=== PATIENT | female | born 1985 | race Two or more races ===

== ENCOUNTER 2022-02-05 14:59 | Emergency (ER) | payer OTHER, SELFPAY ==
--- NOTE | ~2022-02-05 | CT_ITS ---
EXAMINATION: CT ABDOMEN AND PELVIS WITHOUT CONTRAST CLINICAL INFORMATION: r/o seroma to umbilicus / abbess, ABD PAIN COMPARISON: None TECHNIQUE: Multidetector volumetric imaging was performed from the superior aspect of the liver through the pubic symphysis. Sagittal and coronal reformatted images were obtained on the technologist's workstation. This CT examination was performed using dose optimization techniques as appropriate, variously including the following: *Automated exposure control *Adjustment of mA and/or kV according to patient size (this includes techniques or standardized protocols for targeted exams where dose is matched to indication/reason for exam; i.e. extremities or head) *Use of iterative reconstruction technique DLP: 864 mGy-cm FINDINGS: LUNG BASES: Bilateral breast prostheses are present. The lung bases appear normal without infiltrates or effusions. LIVER, GALLBLADDER, AND BILIARY TREE: The liver is normal in size, shape, and attenuation. No focal hepatic lesion or biliary ductal dilatation is present. The gallbladder is contracted but otherwise unremarkable with no evidence of radiopaque gallstones, gallbladder wall thickening, or obvious pericholecystic inflammatory changes. PANCREAS: Unremarkable. SPLEEN: Unremarkable. ADRENAL GLANDS: Unremarkable. KIDNEYS AND URETERS: The kidneys are normal in size, shape, and attenuation. No hydronephrosis, hydroureter, or calculi seen. No perinephric stranding. BLADDER: Unremarkable. GASTROINTESTINAL TRACT: The small and large bowel are unremarkable. The appendix is unremarkable. ABDOMINAL WALL: No significant hernia is appreciated. Streaky changes are present in the abdominal wall. The this patient undergo liposuction? There are multiple injection granuloma right buttocks. There is fatty atrophy of the gluteal muscles which is symmetric bilaterally. No abdominal wall seroma is or abscess is seen. LYMPH NODES: No retroperitoneal lymphadenopathy. VASCULAR: Unremarkable. PELVIC VISCERA: Uterus is not present. A cyst is present in the right adnexa measuring 3.8 x 2.4 x 2.8 cm. Left ovary also contains a small cyst measuring about 2.3 cm in size. No ascites. OSSEOUS STRUCTURES: Unremarkable. CT/CT abdomen pelvis wo IV con IMPRESSION: No significant abnormality. No seroma or abscess. Incidental note made of bilateral ovarian cysts. Fleischner guidelines were followed.
[2022-02-05 15:47] VITALS: BP 122/80; PULSE 84; RESP 16; TEMP 36.4; O2SAT 100; BMI 31.3
[2022-02-05 16:14] LABS: MANUAL DIFF FLAG NO
[2022-02-05 16:19] LABS: Basophils Percent Auto 0.4 % (0-2); Eosinophils Absolute Auto 0.2 X10*3/uL (0.0-0.4); Eosinophils Percent Auto 2.3 % (0-4); Hematocrit 42.6 % (37.0-47.0); Hemoglobin 13.9 g/dl (12.0-16.0); Imm Gran Abs Auto 0.01 X10*3/uL (0.00-0.03); Imm Gran Pct Auto 0.1 % (0.0-0.4); Lymphocytes Absolute Auto 2.2 X10*3/uL (1.2-4.9); Lymphocytes Percent Auto 29.2 % (20-40); Mean Corpuscular HGB Conc 32.6 g/dl (31.0-35.0); Mean Corpuscular Hemoglobin 29.3 pg (27.0-33.0); Mean Corpuscular Volume 89.9 fL (80.0-98.0); Mean Platelet Volume 11.5 fL (9.4-12.3); Monocytes Absolute Auto 0.5 X10*3/uL (0.1-1.2); Monocytes Percent Auto 6.7 % (2-11); Neutrophils Absolute Auto 4.6 x10*3/uL (2.0-8.3); Neutrophils Percent Auto 61.3 % (45-73); Platelet Count 284 X10*3/uL (160-400); Red Blood Count 4.74 X10*6/uL (4.20-5.50); Red Cell Distribution Width 12.6 % (11.0-16.0); White Blood Count 7.4 X10*3/uL (4.8-10.8)
--- NOTE | 2022-02-05 16:23 | ED_ITS ---
HPI - General Adult General Chief complaint: Wound/Laceration Stated complaint: abd pain Time Seen by Provider: 02/05/22 16:02 Source: patient Mode of arrival: ambulatory Limitations: no limitations History of Present Illness HPI narrative: 36 year old female s/p tummy tuck and lipo 5 years ago presents to the emergency department with slight drainage from umbilical incision site from tummy tuck of 5 years ago. Patient tells me that she noticed that her belly button is getting slightly red and there is foul smelling, sticky drainage coming from her belly button that is yellow/green. She also notes associated bloating, denies abdominal pain. Patient reports that this started 4 days ago. She tells me that she has also had lower back pain and some burning with urination whch has been going on for the past 3 days, no radiation of the pain, no flank pain. She tells me that her initial surgery was 5 years ago in the [facility] and that 3 years ago she required another procedure in [place] because the incision had opened, she was having similar symptoms to now at that time. Denies fevers, chills, chest pain, shortness of breath, nausea, vomiting, abdominal pain headache, vision changes, dizziness. Related Data Previous Rx's Medication Instructions Recorded doxycycline hyclate 100 mg capsule 100 mg PO BID 10 days #20 caps 02/05/22 Allergies Allergy/AdvReac Type Severity Reaction Status Date / Time No Known Allergies Allergy Verified 02/05/22 15:46 Review of Systems Review of Systems: Constitutional : No Weight loss, No Fever, No Chills, No Fatigue, No Malaise ENT/Mouth : No sore throat, No Rhinorrhea Eyes: No Eye Pain, No Swelling, No Redness Cardiovascular : No Chest Pain, No SOB, No Dyspnea on Exertion, No Orthopnea, No Edema, No Palpitations Respiratory : No Cough, No Sputum, No Wheezing Gastrointestinal : No Nausea, No Vomiting, No Diarrhea, No Constipation, No abdominal Pain, No Hematochezia, No Melena Genitourinary : + Dysuria, No Urinary Frequency, No Hematuria, Musculoskeletal : + joint pain, No Myalgias, No Joint Swelling Skin : No Skin Lesions, No rash, + umbilical drainage Neuro : No Weakness, No Numbness, No Dizziness, No Headache Psych : No Anxiety/Panic, No Depression All other systems reviewed and are negative Yes all other systems are reviewed and are negative [facility] Past Medical History Attestation statement: The following information was validated with the patient. Source: old records reviewed and nursing notes reviewed Social History Social History Advance Directives: No Advance Directives Information Provided: No Physical Exam ED Vital Signs: Vital Signs - 24 hr 02/05/22 15:47 Temperature 97.5 F Pulse Rate 84 Respiratory Rate 16 Blood Pressure 122/80 Pulse Oximetry 100 Oxygen Delivery Method Room Air BMI result Body Mass Index 31.3 vss Appearance: Alert.? Oriented X3.? No acute distress.? Head: Normocephalic, atraumatic, no step-offs or deformities Eyes: Pupils equal, round and reactive to light.? Neck: Normal inspection.? Neck supple.? CVS: Normal heart rate and rhythm.? Pulses normal.? Respiratory: No respiratory distress.? Breath sounds normal.? Abdomen: Soft and nontender.? Umbilicus without erythema, warmth, fluctuance. No signs of evident abscess on exam. Unable to palpate any umbilical hernias. No pain with palpation of this area. Skin: Skin warm and dry.? Normal skin color.? Normal skin turgor.? Extremities: No lower extremity edema.? No calf ttp. 5/5 strength to bilateral upper and lower extremities Back: Slight discomfort with palpation over left flank cover no midline tenderness. No CVA tenderness bilaterally Neuro: Oriented X 3.? No motor deficit.? No sensory deficit. CN 2-12 intact . Patient ambulating with steady gait. No saddle paresthesias. DTRs intact to bilateral lower extremities. Course Reevaluation(s) Reevaluation #1: Upon further questioning patient tells me she thinks that years ago she had a seroma, however she is not certain she tells me that when [place] was living [place] different [place] they would put her on antibiotics each time her belly button had some drainage. To clarify, she tells me that is not been draining today however the past few days she has noted some scant drainage from the site. She denies abdominal pain however tells me she feels like her abdomen is bloated. Time: 17:43 Reevaluation #2: Patient's CT scan shows no seroma, no acute pathology. Incidental finding of bilateral ovarian cysts, patient denying pelvic pain, vaginal discharge or bleeding. Unlikely torsion or ectopic patient has - test. Patient updated, will be discharged on doxycycline for skin infection. I feel patient is stable for discharge home at this time, patient in agreement with plan. Time: 19:40 Medical Decision Making MDM Narrative Medical decision making narrative: 1627 30-year-old female presents with concerns of left flank pain, urinary frequency and dysuria, umbillical redness and drainage from an old incision site X4 days Physical examination benign Will rule out UTI, unlikely pyelo. Unlikely epidural abscess or cauda equina. Unlikely hernia or seroma however will rule out with CT scan. No evidence of cellulitis on exam. Plan- labs, urine , will rule out seroma with CT of the abdomen and pelvis although unlikely Medical Records Medical records reviewed: Yes I reviewed the patient's medical records. Lab Data Lab results reviewed: Yes I reviewed the patient's lab results. Result diagrams: 02/05/22 16:07 02/05/22 16:07 Labs: Lab Results 02/05/22 02/05/22 02/05/22 Range/Units 16:07 16:07 19:51 WBC 7.4 (4.8-10.8) X10*3/uL RBC 4.74 (4.20-5.50) X10*6/uL Hgb 13.9 (12.0-16.0) g/dl Hct 42.6 (37.0-47.0) % MCV 89.9 (80.0-98.0) fL MCH 29.3 (27.0-33.0) pg MCHC 32.6 (31.0-35.0) g/dl RDW 12.6 (11.0-16.0) % Plt Count 284 (160-400) X10*3/uL MPV 11.5 (9.4-12.3) fL Immature Gran % (Auto) 0.1 (0.0-0.4) % Neut % (Auto) 61.3 (45-73) % Lymph % (Auto) 29.2 (20-40) % [place] % (Auto) 6.7 (2-11) % Eos % (Auto) 2.3 (0-4) % Baso % (Auto) 0.4 (0-2) % Lymph # (Auto) 2.2 (1.2-4.9) X10*3/uL [place] # (Auto) 0.5 (0.1-1.2) X10*3/uL Eos # (Auto) 0.2 (0.0-0.4) X10*3/uL Baso # (Auto) 0.0 (0.0-0.2) X10*3/uL Abs Immat Gran (auto) 0.01 (0.00-0.03) X10*3/uL Absolute Neuts (auto) 4.6 (2.0-8.3) x10*3/uL Absolute Nucleated RBC 0.000 (0.0-0.012) X10*3/uL Nucleated RBC % (auto) 0.0 (0.0-0.2) /100WBC Sodium 137 (135-145) mmol/L Potassium 4.8 (3.3-5.1) mmol/L Chloride 105 (96-108) mmol/L Carbon Dioxide 19 L (22-29) mmol/L Anion Gap 18 (12-20) BUN 13 (9-16) mg/dL Creatinine 0.70 (0.5-1.4) mg/dL Estim Creat Clear Calc 128.4 Estimated GFR > 60 Random Glucose 75 (60-115) mg/dL Calcium 9.3 (8.4-10.2) mg/dL Total Bilirubin 0.3 (0.0-1.0) mg/dL Direct Bilirubin < 0.2 (0.0-0.5) mg/dL AST 21 (5-31) U/L ALT 14 (0-31) U/L Alkaline Phosphatase 69 (39-117) U/L Total Protein 7.9 (6.5-8.0) g/dL Albumin 4.4 (3.5-5.0) g/dL Lipase 30 (8-78) U/L Beta HCG, Quant < 2 mIU/mL Urine Color Yellow Urine Appearance Clear Urine pH 7.0 (5.0-9.0) Ur Specific [place] 1.015 (1.005-1.025) Urine Protein Negative (Neg-Trace) mg/dL Urine Glucose (UA) Negative (Negative) mg/dL Urine Ketones Negative (Negative) mg/dL Urine Blood Negative (Negative) Urine Nitrite Negative (Negative) Ur Leukocyte Esterase Negative (Negative) Discharge Plan Discharge Clinical Impression: Abdominal bloating Patient Disposition: Home, Self-Care Instructions: Gas and Bloating (ED), Abdominal Pain (ED) Additional Instructions: Take your medications as prescribed. If you were prescribed antibiotics today, it is important that you take your medication to their entirety, do not skip any doses, do not finish them early. Follow-up with your primary care provider this week. Return to the emergency department with new or worsening symptoms. Such as fevers, chills, chest pain, shortness of breath, nausea, vomiting, dizziness, headache, vision changes, lethargy In case of emergency call 911 Doxycycline is an antibiotic that has been sent to your pharmacy, please stay out of direct sunlight as this can cause skin irritation and rash. CT/CT abdomen pelvis wo IV con IMPRESSION: No significant abnormality. No seroma or abscess. Incidental note made of bilateral ovarian cysts. ? Fleischner guidelines were followed. Prescriptions: New doxycycline hyclate 100 mg capsule 100 mg PO BID 10 Days Qty: 20 0RF Referrals: Physician,Nonstaff [Primary Care Provider] - 2 days Stand Alone Forms: Work/School Release
[2022-02-05 16:30] LABS: Anion Gap 18 (12-20); Blood Urea Nitrogen 13 mg/dL (9-16); Calcium 9.3 mg/dL (8.4-10.2); Carbon Dioxide 19 mmol/L (22-29); Chloride 105 mmol/L (96-108); Creatinine Clr Calc Pharmacy 128.4; Estimated Glomerular Filt Rate > 60; Glucose Random 75 mg/dL (60-115); Potassium 4.8 mmol/L (3.3-5.1); Sodium 137 mmol/L (135-145)
[2022-02-05 18:11] LABS: HCG Quantitative < 2 mIU/mL
[2022-02-05 19:24] LABS: Alanine Aminotransferase 14 U/L (0-31); Albumin Level 4.4 g/dL (3.5-5.0); Alkaline Phosphatase 69 U/L (39-117); Aspartate Amino Transferase 21 U/L (5-31); Bilirubin Direct < 0.2 mg/dL (0.0-0.5); Bilirubin Total 0.3 mg/dL (0.0-1.0); Lipase 30 U/L (8-78); Total Protein 7.9 g/dL (6.5-8.0)
[2022-02-05 19:57] LABS: Appearance Urine Clear; Color Urine Yellow; Glucose Urine UA Negative (Negative); Leukocyte Esterase Urine Negative (Negative); Nitrite Urine Negative (Negative); Specific Gravity - Urine 1.015 (1.005-1.025); Urine Blood Negative (Negative); Urine Ketones Negative (Negative); Urine Protein Negative (Neg-Trace)
== END 2022-02-05 20:30 | disposition home or self-care (01) ==
PROVIDERS: Physician Assistant; Emergency Provider Emergency Medicine
DX: R14.0 Abdominal distension (gaseous) (principal); R35.0 Frequency of micturition; R30.0 Dysuria; Z79.899 Other long term (current) drug therapy
CPT/HCPCS: 36415; 74176; 80048; 80076; 81003; 83690; 84702; 85025; 99282; 99284

== ENCOUNTER 2023-04-07 11:46 | Emergency (ER) | payer OTHER, SELFPAY ==
[2023-04-07 12:11] VITALS: BP 107/55; PULSE 79; RESP 16; TEMP 36.3; O2SAT 99; BMI 30.8
--- NOTE | 2023-04-07 12:11 | ED_ITS ---
HPI - Skin/Abscess/Foreign Bdy General Chief complaint: Skin/Abscess/Foreign Body Stated complaint: Blister on leg Time Seen by Provider: 04/07/23 12:22 Source: patient and family Mode of arrival: ambulatory Limitations: no limitations History of Present Illness HPI narrative: 37-year-old female with no significant pmhx presents to the ED today with complaint of a itchy red blisters to her thighs x4 days. She noticed redness to the front of her or right thigh four days ago while at work. She works at [employer] and denies handling any chemicals or materials. Over the last few days this area has become itchy and has now developed a fluid-filled blister. She is now starting to get the same redness to the front of her left thigh and notices a small blister starting to form. Reports pain intensity rated 6/10. Has not taken any pain medication at home for this. Denies blisters, itching or redness anywhere else on the body. States she has never had symptoms like this before. Denies new detergent/ lotion/ soaps. Denies chance of . Denies concern for STIs. Denies recent travel. Denies insect or tick bites. Denies fever, chills, headache, dizziness, neck pain, chest pain, SOB, dysuria, hematuria, vaginal discharge. Related Data Previous Rx's Medication Instructions Recorded doxycycline hyclate 100 mg capsule 100 mg PO BID 10 days #20 caps 02/05/22 cephalexin 500 mg capsule 500 mg PO QID 7 days #28 caps 04/07/23 diphenhydramine HCl 50 mg capsule 50 mg PO Q8H PRN itching #14 caps 04/07/23 hydrocortisone 1 % topical 1 appl topical BID PRN itching 04/07/23 ointment (Anti-Itch #28.35 grams (hydrocortisone)) Allergies Allergy/AdvReac Type Severity Reaction Status Date / Time No Known Allergies Allergy Verified 04/07/23 12:11 Review of Systems 2 Review of Systems: Constitutional: No fever, chills, fatigue, night sweats, weight changes ENT/Mouth: No ear pain, hearing loss, nasal congestion, sinus pain, rhinorrhea, sore throat Eyes: No eye pain, swelling, redness, vision changes, discharge Cardio: No chest pain, palpitations, HUNTER, orthopnea, peripheral edema Pulm: No SOB, cough, sputum, wheezing, dyspnea, hemoptysis GI: No nausea, vomiting, hematemesis, abdominal pain, diarrhea, constipation, hematochezia, melena : No irregular bleeding, dysuria, frequency, urgency, hesitancy, hematuria, flank pain, urinary flow changes, urinary incontinence or retention MSK: No back pain, neck pain, joint pain, myalgias Skin: No lesions, rashes, +blisters to thighs Neuro: No weakness, numbness, paresthesias, LOC, dizziness, headache All other systems reviewed and are negative. [facility] Past Medical History Attestation statement: The following information was validated with the patient. Source: old records reviewed and nursing notes reviewed Social History Social History Advance Directives: No Advance Directives Information Provided: Yes Physical Exam 2 Vital Signs: Vital Signs: Last Vital Signs Temp 97.4 F 04/07/23 12:11 Pulse 89 04/07/23 14:06 Resp 19 04/07/23 14:06 BP 102/59 L 04/07/23 14:06 Pulse Ox 99 04/07/23 14:06 O2 Del Method Room Air 04/07/23 14:06 BMI result Body Mass Index 30.8 Vital signs stable Const: General: cooperative, comfortable, no acute distress, alert and awake Orientation/consciousness: patient oriented x3 Limitations: no limitations HEENT: Other: No mucocutaneous lesions noted to oral mucosa. Head: Yes normal to inspection Ears: hearing grossly normal bilaterally General nose exam: Normal external nose present Mouth: Normal oral and palatal mucosa present, lip normal, tongue normal, oropharynx normal and moist mucous membranes Throat: Yes posterior oropharynx normal, Yes tonsils normal and Yes uvula midline Eyes: General: appearance normal, both eyes and all related structures C onjunctivae: conjunctivae normal Sclerae: sclerae normal Pupils: Equal, round and reactive pupils present Neck: Neck: Yes normal visual inspection and Yes no lymphadenopathy Resp: Effort & Inspection: normal respiratory effort Auscultation: clear to auscultation bilaterally Cardio: Rate: regular rate Rhythm: regular rhythm Peripheral pulses: r adial pulses present and dorsalis pedis present GI: Inspection: Yes normal to inspection Skin: Other: Refer to photos below. 3cm fluid filled blister on an erythemat ous, pruritic base noted to the anterior aspect of the right thigh. There is an area of erythema with a small, less than 1cm fluid filled blister noted to anterior left thigh. No other rashes or lesions noted to skin. No involvement of mucous membranes or palms/soles. No sloughing. Neuro: General: patient oriented x3, gait normal and moves all extremities Cranial nerves: Yes CN's II-XII intact bilaterally and Yes Equal, round and reactive pupils present Extrem: General: Yes normal to inspection and Yes full ROM Course Course Course Narrative: RME: 37yo F w/ PMHx Tummy tuck & Liposuction presenting to the ED c/o pruritic blister to inner thigh bilaterally. Admits started off initially as erythema and blister formed this morning. Denies known new exposures including soaps/lotions/detergent, new sexual partners or concern for STI. Denies travel Fluid-filled blister noted to right inner thigh with surrounding erythema, small blister noted to left inner thigh Full HPI, ROS and PE to be performed by primary ED provider. Reevaluation(s) Reevaluation #1: Fluid filled blister drained > HSV serology sent. Urine without infection or . I have concern for an allergic contact dermatitis vs viral/ bacterial infection. Plan to discharge patient home with benadryl, prednisone and keflex with dermatology follow up. Presentation not consistent with SJS/TEN. Discussed strict return precautions. All questions answered at this time. Patient is agreeable with disposition and stable for discharge. Medications Administered Discontinued Medications Generic Name Dose Route Start Last Admin Trade Name Freq PRN Reason Stop Dose Admin Diphenhydramine HCl 50 mg 04/07/23 13:46 04/07/23 13:58 Diphenhydramine Hcl 25 Mg Capsule PO 04/07/23 13:47 50 mg ONCE ONE Administration Medical Decision Making Medical Decision Making MDM Narrative: 37-year-old female with no significant pmhx presents to the ED today with complaint of a itchy red blisters to her thighs x4 days. VSS, afebrile. Patient is nontoxic appearing, in NAD. There is a 3cm fluid filled blister on an erythematous, pruritic base noted to the anterior aspect of the right thigh. There is an area of erythema with a small, less than 1cm fluid filled blister noted to anterior left thigh. No other rashes or lesions noted to skin. No involvement of mucous membranes or palms/soles. No sloughing. Lungs CTA b/l. Posterior oropharynx without edema. Controlling secretions and speaking in complete sentences. No signs of respiratory distress. Clinical concern for viral vs bacterial infection, allergic reaction, contact dermatitis, bullous pemphigoid. Unlikely SJS/TEN. Herpes serology ordered in triage. I will order UA and urine test. Plan for re-evaluation. Differential Diagnosis Differential Diagnoses: The differential diagnosis associated with the presentation includes As above. Admission/Observation Not considered Lab Data MDM Lab Attestation statement: I reviewed the patient's lab results. As above Labs: Lab Results 04/07/23 Range/Units 13:19 Urine Color Yellow Urine Appearance Clear Urine pH 5.5 (5.0-9.0) Ur Specific [place] >= 1.030 H (1.005-1.025) Urine Protein Negative (Neg-Trace) mg/dL Urine Glucose (UA) Negative (Negative) mg/dL Urine Ketones Trace (Negative) mg/dL Urine Blood Negative (Negative) Urine Nitrite Negative (Negative) Ur Leukocyte Esterase Negative (Negative) Urine Test NEGATIVE (NEGATIVE) Independent Historian Clinical information obtained from an independent historian. History obtained from or confirmed by: Spouse External Record Review External record reviewed: Inpatient record Prescription Management I considered prescription management with: Pain Medication and Other (antihistamine, steroid) Critical Care Time Critical Care Time Critical Care Time: No Discharge Plan Discharge Clinical Impression: Blistering of skin Patient Disposition: Home, Self-Care Additional Instructions: Your urine did not show infection or today. You have been prescribed an antibiotic to take 4 times daily. Keflex has been sent to your pharmacy. Take this as prescribed. Do not miss any doses or stop taking this early. Benadryl has been sent to your pharmacy. You can take this every 8 hours to help with itching. This may cause you to be drowsy so do not drive while taking this. Hydrocortisone cream has been sent to your pharmacy. You can apply this to any areas of itching. Her blister was popped in the ED today. Keep this covered and intact to prevent infection. You have been provided a referral to a bellperson. You may call them to make an appointment. they will not call you. If symptoms persist or worsen please return to the emergency department. In the case of an emergency call 911. Prescriptions: New hydrocortisone [Anti-Itch (HC)] 1 % ointment 1 appl topical BID PRN (Reason: itching) Qty: 28.35 0RF diphenhydramine HCl 50 mg capsule 50 mg PO Q8H PRN (Reason: itching) Qty: 14 0RF cephalexin 500 mg capsule 500 mg PO QID 7 Days Qty: 28 0RF No Action doxycycline hyclate 100 mg capsule 100 mg PO BID 10 Days Qty: 20 0RF Referrals: Waqas Rod, INSTITUTIONAL AIDE-BC [Nurse Practitioner] - Stand Alone Forms: Work/School Release Interventions: ED Discharge Assessment Last Done: 04/07/23 14:15 Discharge Date/Time: 04/07/23 14:16
[2023-04-07 13:30] LABS: Appearance Urine Clear; Color Urine Yellow; Glucose Urine UA Negative (Negative); Leukocyte Esterase Urine Negative (Negative); Nitrite Urine Negative (Negative); PH 5.5 (5.0-9.0); Specific Gravity - Urine >= 1.030 (1.005-1.025); Urine Blood Negative (Negative); Urine Ketones Trace mg/dL (Negative); Urine Protein Negative (Neg-Trace)
[2023-04-07 13:33] LABS: UPreg QC Valid YES; Urine Pregnancy NEGATIVE (NEGATIVE)
[2023-04-07] MEDS: diphenhydrAMINE HCL 25 MG CAPSULE 50 MG PO (13:58)
--- NOTE | 2023-04-07 13:58 | PC.NURSE ---
PT MEDICATED PER mar.
[2023-04-07 14:06] VITALS: BP 102/59; PULSE 89; RESP 19; O2SAT 99
== END 2023-04-07 14:16 | disposition home or self-care (01) ==
PROVIDERS: Physician Assistant; Physician Assistant Medical; Emergency Provider Emergency Medicine Emergency Medical Services; PCP Internal Medicine
DX: S80.821A Blister (nonthermal), right lower leg, initial encounter (principal); R21 Rash and other nonspecific skin eruption; X58.XXXA Exposure to other specified factors, initial encounter; Y93.9 Activity, unspecified; Y92.9 Unspecified place or not applicable; Y99.9 Unspecified external cause status; Z79.899 Other long term (current) drug therapy
CPT/HCPCS: 36415; 81003; 81025; 87255; 99283

== ENCOUNTER 2023-06-03 13:53 | Outpatient (AMB) | payer OTHER, SELFPAY ==
[2023-06-03 14:01] VITALS: BMI 31.5
--- NOTE | 2023-06-03 14:01 | A.OFFVIS_ITS ---
Intake VS Expanded 06/03/23 14:01 06/16/23 10:12 Height 5 ft 6 in 5 ft 6 in Weight 195 lb 1.745 oz 195 lb BMI 31.5 31.5 Intake Visit Reasons: Obesity/ Unable to reach patient Allergies No Known Allergies Allergy (Verified 04/07/23 12:11) HPI Nutrition Presentation Details Pt presents for MNT for obesity. Pt was referred by Dr. Daphne Lyn from [facility] Patient reports having had tummy tuck 9 yrs go. Pt reports having gradually gained about 30 lbs in about 2 years ago food frequency: fruits: not including vegetable: not including Fish: 0-1 time per week Pt reports weight was 168 lbs 2 yrs ago daily intake 5 am coffee with 1 tbsp sugar poptar or toast or bagel with cream cheese or tuna with crackers , water 10: 30 lunch : rice/chicken, water snacks on chips 4-5 pm dinner: rice/chicken , juice 8 pm coffee fried : 3 x/wk walking > 1 hr daily , work is active eoth: occ (deisy occ) Smoking: denies YWK-Uviyiep-Oa.Jeor Equation Height 5 ft 6 in Weight 195 lb Resting Metabolic Rate 1583.41 Calculated Activity Level Mild Activity Calories Needed to Maintain Weight 2177.19 Diagnosis Nutrition problem #1 excessive energy intake As related to (etiology) #1 diagnosis As evidenced by (sign/symptom) #1 high BMI (31.5 on 05/2023 and reports of 30 lb wt gain in 2 yrs) Monitoring/Goals Nutrition problem monitoring total CHO intake, weight and oral fluids Nutrition goal/outcome wt loss 5lbs in 2 months Outcome progress verbalized understanding Learning/Education Readiness to learn good Stages of change preparation Educational materials provided Yes (meal planning, reducing empty moy foods ) Most Recent Diabetes Results: Creatinine 0.70 mg/dL (0.5-1.4) 02/05/22 Blood Urea Nitrogen 13 mg/dL (9-16) 02/05/22 Sodium 137 mmol/L (135-145) 02/05/22 Potassium 4.8 mmol/L (3.3-5.1) 02/05/22 Chloride 105 mmol/L (96-108) 02/05/22 Carbon Dioxide 19 mmol/L (22-29) L 02/05/22 Calcium 9.3 mg/dL (8.4-10.2) 02/05/22 AST 21 U/L (5-31) 02/05/22 ALT 14 U/L (0-31) 02/05/22 Total Protein 7.9 g/dL (6.5-8.0) 02/05/22 Albumin 4.4 g/dL (3.5-5.0) 02/05/22 Assessment & Plan Assessment & Plan (1) Obesity (BMI 30.0-34.9): Code(s): E66.9 - Obesity, unspecified Plan: Wt: 89 Kg ( 05/2023 ) Est kcal needs as per MSJ: 2200 (40% carb, 30% protein/fat) Est fluid needs as per 25-30 ml/d:2670 Est prot per day as per 1 g/kg bw: 89 Recommend fiber intake : 8-10 g per day and gradually increase to 25-28 g per day for women and 35-38 g for men or as tolerated Recommend sodium intake per day : less than 2000 mg Educated patient on: ( R = reviewed V = verbalizes understanding N/R = needs review N/A = not applicable * Food sources of carbohydrate, adequate serving sizes and its role in various health conditions: R * Differences between complex carbohydrates a simple carbohydrates, role of fiber in diet: R * Lean protein sources of foods: R * Differences between types of fats and role in diet (mono on saturated fat fatty acids, saturated fatty acids, trans fats): R basic (comp calories) * Food sources of sodium in salt and healthy modifications for heart health in kidney health: NR * Vitamins and minerals: R * Healthy plate method concept: R * Physical activity: Benefits a precaution: R V Patient Instructions: Have 2 fruits a day as a snack in between meals, reducing total calories from 150+ to 80 per snack Reduce on your total carbohydrate at dinner to less than 100 g Practice lower fat meal preparation Continue working on having water as preferred beverage in reducing on beverages with sugar added Coding Level of Care Code Nutr Indiv Intake (28364) Diagnoses Obesity (BMI 30.0-34.9) E66.9 Time Spent (min) 30
[2023-06-16 10:12] VITALS: BMI 31.5
== END 2023-06-03 15:31 | disposition home or self-care (01) ==
PROVIDERS: PCP Internal Medicine; Visit Provider Dietitian, Registered
DX: E66.9 Obesity, unspecified (principal)

== ENCOUNTER → 2023-06-03 13:53 | Outpatient (BNVA) | payer OTHER, SELFPAY | PROVIDERS: PCP Internal Medicine; Visit Provider Dietitian, Registered | DX: E66.9 Obesity, unspecified (principal); Z68.31 Body mass index [BMI] 31.0-31.9, adult | CPT/HCPCS: 97802 ==

== ENCOUNTER 2023-06-22 05:01 | Emergency (ER) | payer OTHER, SELFPAY ==
[2023-06-22 05:09] VITALS: BP 115/74; PULSE 89; RESP 18; TEMP 36.7; O2SAT 96; BMI 29.7
[2023-06-22 05:24] VITALS: O2SAT 98
[2023-06-22 05:35] LABS: COVID-19 Test Positive (Negative); IDNOW Serial# 152EDE1D
[2023-06-22 05:42] LABS: IDNOW Serial# 08D9AD1C; Influenza A Negative (Negative); Influenza B2 Negative (Negative)
--- NOTE | 2023-06-22 05:56 | ED.URI ---
HPI - URI/Sore Throat General Chief Complaint: Upper Respiratory Symptoms Stated Complaint: body pain Time Seen by Provider: 06/22/23 05:13 Source: patient Mode of arrival: ambulatory History of Present Illness HPI Narrative: 38-year-old female who presents with upper respiratory symptoms since yesterday, congestion, sore throat, body aches, headaches diarrhea. Related Data Previous Rx's Medication Instructions Recorded doxycycline hyclate 100 mg capsule 100 mg PO BID 10 days #20 caps 02/05/22 cephalexin 500 mg capsule 500 mg PO QID 7 days #28 caps 04/07/23 diphenhydramine HCl 50 mg capsule 50 mg PO Q8H PRN itching #14 caps 04/07/23 hydrocortisone 1 % topical 1 appl topical BID PRN itching 04/07/23 ointment (Anti-Itch #28.35 grams (hydrocortisone)) Allergies Allergy/AdvReac Type Severity Reaction Status Date / Time No Known Allergies Allergy Verified 06/22/23 05:17 Review of Systems Review of Systems: Pertinent positives and negatives as stated in [facility] Past Medical History Source: nursing notes reviewed Social History Social History Alcohol intake: current Alcohol intake frequency: holidays/special occasions only Smoked in Last 30 Days: No Use of substances other than those prescribed or required for medical reasons: No Advance Directives: No Advance Directives Information Provided: No Patient : No Physical Exam Vital Signs: Vital Signs: Last Vital Signs Temp 98.0 F 06/22/23 05:09 Pulse 89 06/22/23 05:09 Resp 18 06/22/23 05:09 BP 115/74 06/22/23 05:09 Pulse Ox 98 06/22/23 05:24 O2 Del Method Room Air 06/22/23 05:24 BMI result Body Mass Index 29.7 VITAL SIGNS: Reviewed. GENERAL: Well developed, well nourished, in no acute distress. HEAD: Normocephalic/atraumatic EYES: PERRLA, EOMI EARS: Ext canals without abnormality, TMs non-bulging and non-erythematous NOSE: Nares patent bilateral OROPHARYNX: no oral lesions noted, posterior pharynx clear and non-erythematous without noted tonsillar enlargement/erythema/exudates NECK: Supple, no adenopathy LUNGS: Normal breath sounds. No adventitious sounds or accessory muscle use. SpO2<98> CARDIOVASCULAR: Regular rate and rhythm without noted murmurs ABDOMEN: Soft, non-tender, non-distended with bowel sounds. MUSCULOSKELETAL: No tenderness, deformities, or effusions noted on gross inspection. EXTREMITIES: No cyanosis, clubbing or edema. SKIN: Inspection of the skin reveals no rashes NEUROLOGIC: Alert and oriented x 4. Strength and sensation to light touch were grossly intact x 4. Medications Administered Discontinued Medications Generic Name Dose Route Start Last Admin Trade Name Muriel PRN Reason Stop Dose Admin Acetaminophen 975 mg 06/22/23 05:53 06/22/23 06:05 Acetaminophen 325 Mg Tablet PO 06/22/23 05:54 975 mg ONCE ONE Administration Ibuprofen 400 mg 06/22/23 05:53 06/22/23 06:05 Ibuprofen 400 Mg Tablet PO 06/22/23 05:54 400 mg ONCE ONE Administration Medical Decision Making Medical Decision Making [facility] Narrative: 38-year-old female with history and clinical presentation most consistent with viral syndrome, review of viral testing demonstrates the patient is COVID-19 positive. She received combination analgesics and is otherwise discharged home with instructions to isolate for 5 days Differential Diagnosis Differential Diagnoses: The differential diagnosis associated with the presentation includes Please see the discussion above Admission/Observation Consideration of admission/observation: Escalation of care including admission/observation considered Please see the discussion above Lab Data [facility] Lab Attestation statement: I reviewed the patient's lab results. Please see the discussion above Labs: Lab Results 06/22/23 Range/Units 05:20 COVID-19 ([facility]) Positive A (Negative) COVID-19 Clin Com See Note Influenza Type A ([facility]) Negative (Negative) Influenza Type B ([facility]) Negative (Negative) Influenza A & B Note See Note Discharge Plan Discharge Clinical Impression: Viral syndrome, Lab test positive for detection of COVID-19 virus Patient Disposition: Home, Self-Care Instructions: Viral Syndrome (ED), COVID-19 (Coronavirus Disease 2019) (ED) Additional Instructions: 1. Recommend [id number] Tylenol/ibuprofen as needed for body aches, headaches, temperatures greater than 100.4. Increase the amount of water intake. 2. You must isolate for 5 days. 3. Follow-up with your primary care doctor via telemedicine appointment Return to the ER for any worsening symptoms. Prescriptions: No Action doxycycline hyclate 100 mg capsule 100 mg PO BID 10 Days Qty: 20 0RF hydrocortisone [Anti-Itch (HC)] 1 % ointment 1 appl topical BID PRN (Reason: itching) Qty: 28.35 0RF diphenhydramine HCl 50 mg capsule 50 mg PO Q8H PRN (Reason: itching) Qty: 14 0RF cephalexin 500 mg capsule 500 mg PO QID 7 Days Qty: 28 0RF Referrals: Daphne Roberts MD [Primary Care Provider] - Stand Alone Forms: Work/School Release
--- NOTE | 2023-06-22 06:04 | PC.NURSE ---
pt from home reporting onset of chills, headache, ear pain, and diarrhea for one day. pt reports her daughter is sick at home. pt denies shortness of breath and chest pain at this time.
[2023-06-22] MEDS: Ibuprofen 400 MG TABLET PO (06:05)
[2023-06-22] MEDS: Acetaminophen 325 MG TABLET 975 MG PO (06:05)
[2023-06-22 06:20] VITALS: BP 111/70; PULSE 77; RESP 18; TEMP 36.7; O2SAT 95
== END 2023-06-22 06:21 | disposition home or self-care (01) ==
PROVIDERS: Emergency Provider Student in an Organized Health Care Education/Training Program; PCP Internal Medicine
DX: U07.1 COVID-19 (principal); M79.10 Myalgia, unspecified site; J02.9 Acute pharyngitis, unspecified; R51.9 Headache, unspecified; Z79.899 Other long term (current) drug therapy
CPT/HCPCS: 87502; 87635; 99283; 99285

== ENCOUNTER 2023-07-15 13:43 | Outpatient (AMB) | payer OTHER, SELFPAY ==
[2023-07-15 14:13] VITALS: BMI 30.8
--- NOTE | 2023-07-15 14:13 | A.OFFVIS_ITS ---
Intake VS Expanded 07/15/23 14:13 Height 5 ft 7 in Weight 196 lb 10.437 oz BMI 30.8 Intake Visit Reasons: obesity/LVM Allergies No Known Allergies Allergy (Verified 06/22/23 05:17) HPI Nutrition Presentation Details Pt presents for MNT for obesity. Pt reports working on choosing a fruit vs crackers/breads for fiber Most Recent Diabetes Results: Creatinine 0.70 mg/dL (0.5-1.4) 02/05/22 Blood Urea Nitrogen 13 mg/dL (9-16) 02/05/22 Sodium 137 mmol/L (135-145) 02/05/22 Potassium 4.8 mmol/L (3.3-5.1) 02/05/22 Chloride 105 mmol/L (96-108) 02/05/22 Carbon Dioxide 19 mmol/L (22-29) L 02/05/22 Calcium 9.3 mg/dL (8.4-10.2) 02/05/22 AST 21 U/L (5-31) 02/05/22 ALT 14 U/L (0-31) 02/05/22 Total Protein 7.9 g/dL (6.5-8.0) 02/05/22 Albumin 4.4 g/dL (3.5-5.0) 02/05/22 [facility] Social History Alcohol intake: current Alcohol intake frequency: holidays/special occasions only Assessment & Plan Assessment & Plan (1) Obesity (BMI 30.0-34.9): Code(s): E66.9 - Obesity, unspecified Plan: Wt: 89 Kg ( 05/2023 ), 06/2023 Est kcal needs as per MSJ: 2200 (40% carb, 30% protein/fat) Est fluid needs as per 25-30 ml/d:2670 Est prot per day as per 1 g/kg bw: 89 Recommend fiber intake : 8-10 g per day and gradually increase to 25-28 g per day for women and 35-38 g for men or as tolerated Recommend sodium intake per day : less than 2000 mg Educated patient on: ( R = reviewed V = verbalizes understanding N/R = needs review N/A = not applicable * Food sources of carbohydrate, adequate serving sizes and its role in various health conditions: R * Differences between complex carbohydrates a simple carbohydrates, role of fiber in diet: R * Lean protein sources of foods: R * Differences between types of fats and role in diet (mono on saturated fat fatty acids, saturated fatty acids, trans fats): R basic (comp calories) * Food sources of sodium in salt and healthy modifications for heart health in kidney health: NR * Vitamins and minerals: R * Healthy plate method concept: R * Physical activity: Benefits a precaution: R V Patient Instructions: Incororate the healthy plate emthod, by reducing portion of starch and including a non starchy vegetable on a daily basis for one meal per day Coding Level of Care Code Nutr Indiv Subseq (47700) Diagnoses Obesity (BMI 30.0-34.9) E66.9 Time Spent (min) 30
== END 2023-07-15 14:44 | disposition home or self-care (01) ==
PROVIDERS: PCP Internal Medicine; Visit Provider Dietitian, Registered
DX: E66.9 Obesity, unspecified (principal)

== ENCOUNTER → 2023-07-15 13:43 | Outpatient (BNVA) | payer OTHER, SELFPAY | PROVIDERS: PCP Internal Medicine; Visit Provider Dietitian, Registered | DX: E66.9 Obesity, unspecified (principal); Z68.30 Body mass index [BMI] 30.0-30.9, adult | CPT/HCPCS: 97803 ==

== ENCOUNTER 2024-01-10 18:18 | Emergency (ER) | payer OTHER, SELFPAY ==
--- NOTE | ~2024-01-10 | XR_ITS ---
EXAMINATION: Right ankle and right foot. CLINICAL INDICATION: Pain status post injury. COMPARISON: None. TECHNIQUE: 3 views right foot and 2 views right ankle. FINDINGS: RIGHT FOOT: There is no visible acute fracture, dislocation or subluxation seen. The soft tissues are normal. RIGHT ANKLE: The ankle mortise and subtalar joints are normal. No visible acute fracture or dislocation seen. The soft tissues are normal. XR/XR ankle RT min 3V IMPRESSION: Unremarkable right foot exam. Unremarkable right ankle exam.
--- NOTE | ~2024-01-10 | XR_ITS ---
EXAMINATION: Right ankle and right foot. CLINICAL INDICATION: Pain status post injury. COMPARISON: None. TECHNIQUE: 3 views right foot and 2 views right ankle. FINDINGS: RIGHT FOOT: There is no visible acute fracture, dislocation or subluxation seen. The soft tissues are normal. RIGHT ANKLE: The ankle mortise and subtalar joints are normal. No visible acute fracture or dislocation seen. The soft tissues are normal. XR/XR foot RT min 3V IMPRESSION: Unremarkable right foot exam. Unremarkable right ankle exam.
[2024-01-10 18:59] VITALS: BP 145/95; PULSE 91; RESP 18; TEMP 36.8; O2SAT 100; BMI 31.5
--- NOTE | 2024-01-10 18:59 | ED.LOWEXIN ---
HPI - Extremity Injury (Lower) General Chief Complaint: Extremity Injury, Lower Stated Complaint: RT foot injury (at work) Time Seen by Provider: 01/10/24 20:57 Source: patient Mode of arrival: ambulatory Limitations: no limitations History of Present Illness ED Provider: AMARA HPI Narrative: 38 yo female with no sig PMH rolled R ankle at work last week inversion and really hasn't been able to rest it has pain she has continued pain and worsened at work. work sent her over for evaluation. Has never injured her ankle before. MD complaint: ankle injury Onset (ago): week(s) (1) Injury: Right: ankle Type of Injury: inversion Place: work Severity: moderate Relieving factors: rest Exacerbating factors: weight bearing and movement Context: walking Associated symptoms: snap/pop sensation and swelling Other symptoms: none Related Data Previous Rx's ?Medication ?Instructions ?Recorded doxycycline hyclate 100 mg capsule 100 mg PO BID 10 days #20 caps 02/05/22 cephalexin 500 mg capsule 500 mg PO QID 7 days #28 caps 04/07/23 diphenhydramine HCl 50 mg capsule 50 mg PO Q8H PRN itching #14 caps 04/07/23 hydrocortisone 1 % topical 1 appl topical BID PRN itching 04/07/23 ointment (Anti-Itch #28.35 grams (hydrocortisone)) Allergies Allergy/AdvReac Type Severity Reaction Status Date / Time No Known Allergies Allergy Verified 01/10/24 19:01 Review of Systems Review of Systems: Constitutional : No Fever, No Chills ENT/Mouth : No Ear Pain, No Hoarseness, No sore throat Eyes: No Eye Pain, No Swelling, No Redness, No Foreign Body Cardiovascular : No Chest Pain, No SOB Respiratory : No Cough, No Dyspnea Gastrointestinal : No Nausea, No Vomiting, No Diarrhea, No abdominal Pain Genitourinary : No Dysuria, No Hematuria Musculoskeletal : positive joint pain, No Myalgias, No Joint Swelling Skin : No Skin lacerations, No rash Neuro : No Weakness, No Numbness, No Loss of Consciousness, No Dizziness, No Headache Psych : No Anxiety/Panic, No Depression All other systems reviewed and are negative PMFSH Past Medical History Attestation statement: The following information was validated with the patient. Source: old records reviewed Medical History (Updated 01/10/24 @ 21:32 by Ailyn Elizabeth DO) Obesity (BMI 30.0-34.9) Social History Social History (Updated 01/10/24 @ 21:32 by Ailyn Elizabeth DO) Alcohol intake: current Alcohol intake frequency: holidays/special occasions only Patient Tobacco Use Status: Never used Tobacco Physical Exam Vital Signs: Vital Signs: Last Vital Signs Temp 97.9 F 01/10/24 21:05 Pulse 79 01/10/24 21:05 Resp 16 01/10/24 21:05 BP 128/75 01/10/24 21:05 Pulse Ox 100 01/10/24 21:05 O2 Del Method Room Air 01/10/24 21:05 BMI result Body Mass Index 31.5 Appearance: Alert. Oriented X3. No acute distress. Eyes: Pupils equal, round and reactive to light. ENT: Pharynx normal. Neck: Normal inspection. Neck supple. CVS: Normal heart rate and rhythm. Pulses normal. Respiratory: No respiratory distress. Breath sounds normal. Abdomen: Soft and nontender. Skin: Skin warm and dry. Normal skin color. Extremities: No lower extremity edema. R ankle ttp on medial malleolus reproduces pain NV intact distally Neuro: Oriented X 3. No motor deficit. No sensory deficit. Course Course Course Narrative: This is a Rapid Medical Examination (RME) performed by Moise Beckett PA-C in triage. Full HPI, ROS, assessment and treatment plan per primary provider in the Main ED. 38 yo female presenting to the ER for evaluation of right ankle and foot pain after she twisted her ankle 1 week ago at [employer] where she works. Pain and swelling persist so her job told her to come to the ER for evaluation. Pain is in the right lateral ankle and right medial foot. Ambulatory. mild swelling of lateral malleolus. Plan: XR right ankle and foot Medical Decision Making Medical Decision Making MDM Narrative: 38 yo female s/p inversion injury R ankle at work she is NV Intact no other injuries reported at this time will need xrays of R ankle and foot aircast applied instructions to follow up Differential Diagnosis Differential Diagnoses: The differential diagnosis associated with the presentation includes sprain, strain, fracture Independent Interpretation I performed an independent interpretation of an: Plain X-Ray (negative) Radiology Impression Discussion of test interpretation with radiology: I have reviewed the radiologist's reading. Prescription Management I considered prescription management with: Pain Medication Procedures Orthopedic Splinting/Casting Injury #1: Side: right Lower Extremity Injury Location: ankle Lower Extremity Immobilizer: AirCast Additional Comments: NV intact Discharge Plan Discharge Clinical Impression: Ankle sprain and strain Patient Disposition: Home, Self-Care Instructions: Ankle Stirrup Splint (ED), Ankle Sprain (ED) Additional Instructions: air cast for 5 days rest ice and elevate motrin and tylenol for pain no fractures on xray of foot or ankle follow up with doctor if not better in 5 days Prescriptions: No Action doxycycline hyclate 100 mg capsule 100 mg PO BID 10 Days Qty: 20 0RF hydrocortisone [Anti-Itch (HC)] 1 % ointment 1 appl topical BID PRN (Reason: itching) Qty: 28.35 0RF diphenhydramine HCl 50 mg capsule 50 mg PO Q8H PRN (Reason: itching) Qty: 14 0RF cephalexin 500 mg capsule 500 mg PO QID 7 Days Qty: 28 0RF Stand Alone Forms: Work/School Release Print Language: Sinhala
[2024-01-10 21:05] VITALS: BP 128/75; PULSE 79; RESP 16; TEMP 36.6; O2SAT 100
[2024-01-10 21:59] VITALS: BP 128/75; PULSE 79; RESP 16; TEMP 36.6; O2SAT 100
== END 2024-01-10 21:59 | disposition home or self-care (01) ==
PROVIDERS: Emergency Provider Emergency Medicine; PCP Internal Medicine
DX: S93.401A Sprain of unspecified ligament of right ankle, initial encounter (principal); S96.911A Strain of unspecified muscle and tendon at ankle and foot level, right foot, initial encounter; X50.1XXA Overexertion from prolonged static or awkward postures, initial encounter; Y93.89 Activity, other specified; Y92.512 Supermarket, store or market as the place of occurrence of the external cause; Y99.0 Civilian activity done for income or pay
CPT/HCPCS: 73610; 73630; 99283